=== PATIENT | male | born 1970 | race Two or more races ===

== ENCOUNTER 2022-04-22 08:01 | Emergency (ER) | payer OTHER ==
[~2022-04-22] VITALS: Ht 175.3 cm; Wt 115.0 kg
[2022-04-22] MEDS ORDERED: ACETAMINOPHEN 500 MG TAB PO ONE (11:00)
[2022-04-22 12:30] VITALS: BP 139/71
== END 2022-04-22 12:54 | disposition home or self-care (01) ==
LOC: ER 08:01
DX: U07.1 COVID-19 (principal); J06.9 Acute upper respiratory infection, unspecified
CPT/HCPCS: 36415; 87426